=== PATIENT | female | born 1935 | race Caucasian/White ===

== ENCOUNTER 2018-09-24 14:16 | Emergency (ER) | payer MEDICARE, OTHER ==
[~2018-09-24] VITALS: Ht 144.8 cm; Wt 42.6 kg
[~2018-09-24 14:16] MED LIST: ATORVASTATIN CA20 MG ORAL; LOSARTAN POTAS100 MG ORAL; PLAVIX75 MG ORAL; TENORMIN100 MG ORAL
[2018-09-24] MEDS ORDERED: TENORMIN100 MG ORAL (14:17)
[2018-09-24 14:19] VITALS: BP 162/91
--- NOTE | 2018-09-24 15:25 | Emergency Room Report ---
History of Present Illness General Chief Complaint: Multiple Trauma/Fall Source: EMS Present Illness HPI 83-year-old female presents to the emergency department brought by ambulance complaining of right hip pain as well as right ankle and foot pain status post mechanical fall while at home. Patient reports that she was attempting to pull a package in through the front door and she somehow fell in the process and was unable to get up. She reports 1 previous fall recently as well which she landed on the same side and sustained bruising. Patient reports that her hip is now hurting 7 out of 10 in severity which is new compared to her last fall. Patient states she is unable to bear weight on the right foot/ankle. Pt. reports feeling short of breath from effort of trying to bring box inside. Denies numbness tingling or loss of sensation or gross motor movements of the extremities, incontinence of bowel or bladder. Denies CP, Palpitations, LOC, AMS , dizziness, Changes in Vision, weakness or a sudden severe headache. Pt. denies hitting her head or having midline neck or back pain. pt. reports she takes Plavix. Allergies: Coded Allergies: No Known Allergies (Unverified , 05/30/15) Patient History Past Medical History: see triage record Past Surgical History: none Pertinent Family History: none Reviewed Nursing Documentation: PMH: Agreed; PSxH: Agreed Nursing Documentation-PMH Hx Cardiac Problems: Yes Hx Hypertension: Yes Hx Cancer: No Hx Gastrointestinal Problems: No Hx Neurological Problems: No Review of Systems All Other Systems: negative except mentioned in HPI Physical Exam Vital Signs Date Time Temp Pulse Resp B/P (MAP) Pulse Ox O2 Delivery O2 Flow Rate FiO2 09/24/18 14:12 98.1 102 17 162/91 94 Room Air Sp02 EP Interpretation: reviewed, normal General Appearance: alert, GCS 15, non-toxic, mild distress Head: normocephalic, atraumatic Eyes: bilateral eye normal inspection, bilateral eye PERRL ENT: hearing grossly normal, normal voice Neck: full range of motion Respiratory: chest non-tender, lungs clear, normal breath sounds, speaking full sentences Cardiovascular #1: regular rate, rhythm, no edema, normal capillary refill Cardiovascular #2: 2+ dorsalis pedis (R), 2+ dorsalis pedis (L) Gastrointestinal: non tender, soft Musculoskeletal: back normal, normal range of motion, other - right leg has slight inward rotation, no obvious left length discrepancy, tender - TTP to the Right HIP laterally and posteriorly, there is bruising. Down the right thigh and right lateral calf. Patient also has tenderness to the right ankle and dorsum of the right foot mild swelling noted. She is unable to airway on the right leg. No midline neck or back tenderness to palpation. Neurologic: alert, oriented x3, responsive, motor strength/tone normal, sensory intact, speech normal, grossly normal Psychiatric: judgement/insight normal Skin: normal color, no rash, warm/dry, well hydrated Lymphatic: no adenopathy Medical Decision Making PA Attestation Dr. Amador is my supervising Physician whom patient management has been discussed with. Diagnostic Impression: Primary Impression: Femur fracture, right Qualified Codes: S72.001A - Fracture of unspecified part of neck of right femur, initial encounter for closed fracture ER Course 83-year-old female presents to the emergency department brought by ambulance complaining of right hip pain as well as right ankle and foot pain status post mechanical fall while at home. Patient reports that she was attempting to pull a package in through the front door and she somehow fell in the process and was unable to get up. She reports 1 previous fall recently as well which she landed on the same side and sustained bruising. Patient reports that her hip is now hurting 7 out of 10 in severity which is new compared to her last fall. Patient states she is unable to bear weight on the right foot/ankle. Pt. reports feeling short of breath from effort of trying to bring box inside. Denies numbness tingling or loss of sensation or gross motor movements of the extremities, incontinence of bowel or bladder. Denies CP, Palpitations, LOC, AMS , dizziness, Changes in Vision, weakness or a sudden severe headache. Ddx considered but are not limited to Fracture, dislocation, contusion, Sprain/ Strain/Spasm Vital signs: are WNL, pt. is afebrile H&PE are most consistent with musculoskeletal injury will perform imaging to r/ o fractures/dislocations. ORDERS: - X-rays: Right Foot and Ankle 3 views each -CT Right Hip No Contrast: POSITIVE for Femoral Surgical neck fx. Pre-op Labs: CBC, CMP: unremarkable -PT/PTT: 11.4/ 1.1 Troponin- 0.004 Negative -Type and screen: TYPE O-POSITIVE ED INTERVENTIONS: - Tylenol PO -- pt. requested something not too strong - 2mg Morphine IV DISPOSITION: at this time pt. will be admitted to Dr. Rose for Fracture of the surgical neck of the Right Femur. Dr. Rose agreed to admit the pt. with transfer to [facility] and to continue pt. care management. Labs Test 09/24/18 15:25 White Blood Count 9.9 K/UL (4.8-10.8) Red Blood Count 3.86 M/UL (4.20-5.40) Hemoglobin 11.3 G/DL (12.0-16.0) Hematocrit 35.1 % (37.0-47.0) Mean Corpuscular Volume 91 FL (80-99) Mean Corpuscular Hemoglobin 29.3 PG (27.0-31.0) Mean Corpuscular Hemoglobin Concent 32.2 G/DL (32.0-36.0) Red Cell Distribution Width 14.1 % (11.6-14.8) Platelet Count 249 K/UL (150-450) Mean Platelet Volume 6.3 FL (6.5-10.1) Neutrophils (%) (Auto) 85.7 % (45.0-75.0) Lymphocytes (%) (Auto) 7.1 % (20.0-45.0) Monocytes (%) (Auto) 6.3 % (1.0-10.0) Eosinophils (%) (Auto) 0.2 % (0.0-3.0) Basophils (%) (Auto) 0.6 % (0.0-2.0) Prothrombin Time 11.4 SEC (9.30-11.50) Prothromb Time International Ratio 1.1 (0.9-1.1) Activated Partial Thromboplast Time 25 SEC (23-33) Sodium Level 140 MMOL/L (136-145) Potassium Level 4.5 MMOL/L (3.5-5.1) Chloride Level 104 MMOL/L (98-107) Carbon Dioxide Level 26 MMOL/L (21-32) Anion Gap 10 mmol/L (5-15) Blood Urea Nitrogen 24 mg/dL (7-18) Creatinine 1.0 MG/DL (0.55-1.30) Estimat Glomerular Filtration Rate mL/min (>60) Glucose Level 101 MG/DL (74-106) Calcium Level 9.4 MG/DL (8.5-10.1) Total Bilirubin 0.9 MG/DL (0.2-1.0) Aspartate Amino Transf (AST/SGOT) 20 U/L (15-37) Alanine Aminotransferase (ALT/SGPT) 25 U/L (12-78) Alkaline Phosphatase 75 U/L (46-116) Total Creatine Kinase 102 U/L (26-308) Troponin I 0.004 ng/mL (0.000-0.056) Total Protein 7.4 G/DL (6.4-8.2) Albumin 3.8 G/DL (3.4-5.0) Globulin 3.6 g/dL Albumin/Globulin Ratio 1.1 (1.0-2.7) EKG Diagnostic Results EP Interpretation: Dr. Nieves Rate: normal - 99bpm Rhythm: other - a-fib ST Segments: no acute changes ASA given to the pt in ED: No PA Scribe Text This Interpretation was scribed by CHARLIE Acevedo. Chest X-Ray Diagnostic Results Chest X-Ray Diagnostic Results : Chest X-Ray Ordered: Yes # of Views/Limited/Complete: 1 View Indication: Shortness of Breath EP Interpretation: Yes CHARLIE Xray: Interpretation reviewed, by supervising MD, and agrees with findings. Interpretation: no consolidation, no effusion, no pneumothorax, no acute cardiopulmonary disease, other - cardiomegaly Impression: Other - abnormal: cardiomegaly Electronically Signed by: Yuliana Acevedo PA-C Other X-Ray Diagnostic Results Other X-Ray Diagnostic Results #1: X-Ray ordered: Right Ankle # of Views/Limited Vs Complete: 3 View Indication: Pain EP Interpretation: Yes CHARLIE Xray: Interpretation reviewed, by supervising MD, and agrees with findings. Interpretation: no dislocation, no soft tissue swelling, no fractures Impression: No acute disease Electronically Signed by: Yuliana Acevedo PA-C Other X-Ray Diagnostic Results #2: X-Ray ordered: Right Foot # of Views/Limited Vs Complete: 3 View Indication: Pain EP Interpretation: Yes CHARLIE Xray: Interpretation reviewed, by supervising , and agrees with findings. Interpretation: no dislocation, no soft tissue swelling, no fractures Impression: No acute disease Electronically Signed by: Yuliana Acevedo PA-C CT/MRI/US Diagnostic Results CT/MRI/US Diagnostic Results : Imaging Test Ordered: CT Right Hip No Contrast Impression abnormalright femur fracture at the surgical neck. Please see official radiology report for specific details. Last Vital Signs Date Time Temp Pulse Resp B/P (MAP) Pulse Ox O2 Delivery O2 Flow Rate FiO2 09/24/18 14:19 102 17 Room Air 09/24/18 14:19 98.1 162/91 94 Disposition: ADMITTED INPATIENT Condition: Serious Yuliana Acevedo Sep 24, 2018 15:25
--- NOTE | 2018-09-24 15:40 | Diagnostic Imaging Report ---
Indication: Pain status post injury Technique: CT osseous pelvis was performed utilizing automated exposure control without intravenous contrast material. Axial, sagittal and coronal images were generated. CT dose: Total DLP 279.25 mGycm; CTDI vol 9.66 mGy Comparison: None Findings: The bones are diffusely demineralized. There is an acute, mildly comminuted intertrochanteric fracture of the right femur. There is associated proximal displacement of the femoral shaft relative to the femoral head/foreshortening. The right femoral head remains well-seated in the acetabulum. There is some mild degenerative change of the right hip with joint space narrowing and subchondral sclerosis/mild cystic change. No additional acute fracture identified. Left hip joint is maintained with some mild degenerative change manifested by joint space narrowing and subchondral sclerosis. Evidence of extensive posterior spinal fixation by means of bilateral posterior rods, seen on the executive director of nursing radiograph. Fixation hardware involves the bilateral iliac bones. There is probably prior surgical decompression of the lower lumbar sacral spine although evaluation is limited as this area is only partially visualized and there is significant streak artifact. 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 A battery pack from a likely spinal stimulator is partially visualized on the executive director of nursing radiograph. Dedicated imaging of this region can be obtained as clinically indicated. There is colonic diverticulosis without evidence to suggest acute diverticulitis. Atherosclerotic vascular calcifications noted. Bladder is moderately distended. IMPRESSION: Osteopenia. Acute intertrochanteric fracture of the right femur as above. Extensive postoperative change of the spine partially visualized. Diverticulosis without evidence of acute diverticulitis. Moderately distended bladder Atherosclerotic disease. The CT scanner at [facility] is accredited by the [employer] and the scans are performed using protocols designed to limit radiation exposure to as low as reasonably achievable to attain images of sufficient resolution adequate for diagnostic evaluation.
--- NOTE | 2018-09-24 15:45 | Diagnostic Imaging Report ---
Indication: Pain status post injury Technique: XRAY Ankle Compl Min 3v R Comparison: None Findings/impression: Bones are diffusely demineralized. No definite/displaced acute fracture identified. Ankle mortise is intact. No appreciable ankle joint effusion. No radiopaque foreign body. Atherosclerotic calcifications.
--- NOTE | 2018-09-24 15:47 | Diagnostic Imaging Report ---
Indication: Pain status post injury Technique: XRAY Foot Complete R Comparison: None Findings: Bones are diffusely demineralized. No definite/displaced acute fracture identified. There is mild hallux valgus. Hammertoe deformities of the second through fifth digits noted. No radiopaque foreign body. Atherosclerotic vascular calcifications noted. Impression: Osteopenia. No evidence of acute fracture.
--- NOTE | 2018-09-24 15:49 | Diagnostic Imaging Report ---
Indication: Cough, preop Technique: XRAY Chest 1v Comparison: None Findings: Heart is enlarged. Mediastinal contours are sharp. There are atherosclerotic calcifications in the aorta. There is no definite focal airspace consolidation. No evidence of pulmonary edema. There is mild scarring with calcification at the right apex. No pleural effusion or pneumothorax. There is eventration of the right hemidiaphragm. Spinal fixation hardware is noted. The bones are demineralized. No acute osseous abnormality appreciated. Impression: Cardiomegaly and atherosclerotic disease. No focal airspace consolidation, pleural effusion or pneumothorax.
[2018-09-24 15:52] LABS: HEMATOCRIT 35.1 % (37.0-47.0); HEMOGLOBIN 11.3 G/DL (12.0-16.0); MEAN CORPUSCULAR VOLUME 91 FL (80-99); PLATELET COUNT 249 K/UL (150-450); RED BLOOD COUNT 3.86 M/UL (4.20-5.40); RED CELL DISTRIBUTION WIDTH 14.1 % (11.6-14.8); WHITE BLOOD COUNT 9.9 K/UL (4.8-10.8)
[2018-09-24 15:55] LABS: BASOPHILS % (AUTO) 0.6 % (0.0-2.0); EOSINOPHILS % (AUTO) 0.2 % (0.0-3.0); LYMPHOCYTES % (AUTO) 7.1 % (20.0-45.0); MONOCYTES % (AUTO) 6.3 % (1.0-10.0); NEUTROPHILS % (AUTO) 85.7 % (45.0-75.0)
[2018-09-24 16:02] LABS: ANION GAP 10 mmol/L (5-15); BLOOD UREA NITROGEN 24 mg/dL (7-18); CALCIUM 9.4 MG/DL (8.5-10.1); CARBON DIOXIDE 26 MMOL/L (21-32); CHLORIDE 104 MMOL/L (98-107); POTASSIUM 4.5 MMOL/L (3.5-5.1); SODIUM 140 MMOL/L (136-145)
[2018-09-24 16:07] LABS: ALANINE AMINOTRANSFERASE 25 U/L (12-78); ALBUMIN 3.8 G/DL (3.4-5.0); ALBUMIN/GLOBULIN RATIO 1.1 (1.0-2.7); ALKALINE PHOSPHATASE 75 U/L (46-116); ASPARTATE AMINO TRANSFERASE 20 U/L (15-37); BILIRUBIN,TOTAL 0.9 MG/DL (0.2-1.0); CREATINE KINASE 102 U/L (26-308)
[2018-09-24 16:09] LABS: INR 1.1 (0.9-1.1)
[2018-09-24] MEDS ORDERED: Morphine Sulfate 2mg/ml Inj IVP ONE (16:30)
[2018-09-24 18:01] VITALS: BP 125/85
== END 2018-09-24 18:20 | disposition short-term general hospital (02) ==
LOC: EDBD 14:16 → EDBEDREQ 15:27 → EMR 16:19
DX: S72.141A Displaced intertrochanteric fracture of right femur, initial encounter for closed fracture (principal); S80.11XA Contusion of right lower leg, initial encounter; W19.XXXA Unspecified fall, initial encounter; Y92.009 Unspecified place in unspecified non-institutional (private) residence as the place of occurrence of the external cause; M25.571 Pain in right ankle and joints of right foot; I10 Essential (primary) hypertension
CPT/HCPCS: 36415; 71045; 73610; 73630; 73700; 80053; 82550; 84484; 85025; 85610; 85730; 86850; 86870; 86900; 86901; 93005; 96374; 96375; 99284; J2270; J2405